=== PATIENT | female | born 1955 | race Asian ===

== ENCOUNTER 2025-05-30 12:47 | Outpatient (REF) | payer MEDICAID, SELFPAY ==
[2025-05-30 18:16] LABS: MANUAL DIFF FLAG NO
[2025-05-30 18:22] LABS: Hematocrit 36.3 % (37.0-47.0); Hemoglobin 12.2 g/dl (12.0-16.0); Imm Gran Abs Auto 0.02 X10*3/uL (0.00-0.03); Imm Gran Pct Auto 0.2 % (0.0-0.4); Lymphocytes Absolute Auto 1.1 X10*3/uL (1.2-4.9); Mean Corpuscular HGB Conc 33.6 g/dl (31.0-35.0); Mean Corpuscular Hemoglobin 28.8 pg (27.0-33.0); Mean Corpuscular Volume 85.6 fL (80.0-98.0); NRBC Abs Auto 0.000 X10*3/uL (0.0-0.012); NRBC Pct Auto 0.0 /100WBC (0.0-0.2); Platelet Count 280 X10*3/uL (160-400); Red Blood Count 4.24 X10*6/uL (4.20-5.50); White Blood Count 9.6 X10*3/uL (4.8-10.8)
[2025-05-30 18:32] LABS: Alanine Aminotransferase 30 U/L (0-31); Aspartate Amino Transferase 33 U/L (5-31); Calcium 10.3 mg/dL (8.4-10.2); Estimated Glomerular Filt Rate 53; Uric Acid 5.0 mg/dL (2.4-5.7)
[2025-05-30 19:40] LABS: Erythrocyte Sedimentation Rate 28 MM/HR (0-20)
== END 2025-05-30 12:48 | disposition home or self-care (01) ==
LOC: HO.HKASLDS 12:47
PROVIDERS: PCP Internal Medicine; Visit Provider Student in an Organized Health Care Education/Training Program
DX: R76.0 Raised antibody titer (principal); M25.541 Pain in joints of right hand; M25.542 Pain in joints of left hand; M25.562 Pain in left knee
CPT/HCPCS: 36415; 82306; 82310; 82565; 84450; 84460; 84550; 85025; 85652; 86140; 86431

== ENCOUNTER 2025-05-30 12:47 | Outpatient (AMB) | payer MEDICAID, SELFPAY ==
[2025-05-30 12:49] VITALS: BP 130/78; PULSE 110; O2SAT 97; BMI 23.1
--- NOTE | 2025-05-30 12:49 | A.OFFVIS_ITS ---
Vital Signs 05/30/25 12:49 Height 5 ft 1 in Weight 122 lb 2.177 oz BMI 23.1 BP 130/78 Blood Pressure Location Rt brachial Position Sitting Pulse 110 H Pulse Source Pulse Oximeter Pulse Oximetry (%) 97 Oxygen Delivery Method Room Air Intake Visit Reasons: knee & hand pain/ New Patient Intake Note: Patient is a new patient, externally referred by Kalia Little MD, from [facility] for knee and hand arthritis. Patient c/o pain in back, also, for about a year. She has been taking Tylenol for pain. Accompanied by: Daughter Allergies Seasonal Allergies Allergy (Unknown, Verified 05/30/25 12:55) Unknown HPI Comments Details: 70-year-old female with a history of breast cancer on letrozole presenting to me as a new patient for evaluation of joint pain. With regards to her breast cancer she was diagnosed in 2023 stage I breast cancer where she underwent surgery, chemotherapy and radiotherapy. She was initially put on anastrozole for 2-3 months where she then developed joint pain in the hands and lower back. After this is was stopped and she was put on exemestane where she then developed joint pain, this was then switched to letrozole which she is currently on. Patient reports his joint pain started 2 years ago, this joint pain is mainly in her left knee, left hip and in her lumbar spine. She states that she feels very stiff in the morning, particularly her left knee and her left hip. She states that she has to wait for 5-10 minutes until she feels like she can move again. She does exercises for her left knee and left hip and back. In terms of her hands, she has bilateral CMC pain aggravated by doing work. For pain control patient will take Tylenol as needed as well as NSAID etodolac as needed. Patient reports many years ago she had lower back pain, that time her MRI showed spondyloarthritis. Patient improved after exercises as conservative management She has had some elevated ESR, highly elevated RF otherwise CBC, creatinine, LFTs were within normal limits ROS: NO FEVER, NO WEIGHT LOSS RECENTLY no skin rashes no photosensitivity no oral ulcers. Recent hair fall due to chemotherapy PHYSICAL EXAM General: Comfortable CVS: RRR Respiratory: clear to auscultation bilaterally. Good respiratory effort Skin: No lesions seen MSK: Patient is able to make a fist bilaterally. No tenderness in the MCPs PIPs bilaterally. No active synovitis noted in the hands. Limited range of motion the shoulders, strength 5/5. Patient has point tenderness in the thoracic spine, as well as point tenderness in the back of her hip. She has limited range of motion in the hips bilaterally. Patient is able to flex and extend the knees bilaterally, very mild swelling noted in the right knee, however it is not warm but is tender to palpation. [facility] Medical History (Updated 05/30/25 @ 13:53 by Radha Goss MD) Asthma Breast cancer Muscle soreness Muscle fatigue Morning stiffness of joints Family History Other CAD (coronary artery disease) Diabetes Hypertension Social History Alcohol intake: never Patient Tobacco Use Status: Never used Tobacco Physical Exam Vital Signs: Last Vital Signs Pulse 110 H 05/30/25 12:49 BP 130/78 05/30/25 12:49 Pulse Ox 97 05/30/25 12:49 Oxygen Delivery Method Room Air 05/30/25 12:49 BMI result Body Mass Index 23.1 Assessment & Plan Assessment & Plan (1) Polyarthralgia: Code(s): M25.50 - Pain in unspecified joint Category: Medical (2) Morning stiffness of joints: Code(s): M25.60 - Stiffness of unspecified joint, not elsewhere classified Category: Medical Plan 70-year-old female with a history of breast cancer on letrozole presenting to me as a new patient for evaluation of joint pain. Her joint pain is limited to the hands, left knee, left hip and in the thoracic spine. I do not see any stigmata of inflammatory arthritis like rheumatoid arthritis or psoriatic arthritis, she does not meet clinical criteria for SLE and other connective tissue disease. Most likely her joint pain is attributed to osteoarthritis and wear and tear DJD. I will obtain bilateral hand x-rays bilateral knee x-rays bilateral hip x- rays as well as lumbar and thoracic spine x-rays. Also obtain blood work including inflammatory markers, RF, CCP, vitamin-D levels, calcium, uric acid. I will refer this patient to PT for strengthening exercises of her knee and lower back. As this patient is on letrozole I would recommend that she have a DEXA scan to determine bone density given that she is on antiestrogen medication. She is counseled to have adequate calcium and vitamin-D. I will check these levels today Follow up in 3 weeks for discussion of results and imaging Orders: Orders XR Knee Iglesia 1or 2V Today M25.50 - Pain in unspecified joint XR hip BI w PEL1V Today M25.60 - Stiffness of unspecified joint, not elsewhere classified XR abdomen 3V Today M25.60 - Stiffness of unspecified joint, not elsewhere classified C Reactive Protein Today R76.0 - Raised antibody titer Erythrocyte Sedimentation Rate Today R76.0 - Raised antibody titer Creatinine Today R76.0 - Raised antibody titer Aspartate Amino Transferase Today R76.0 - Raised antibody titer Rheumatoid Factor Today R76.0 - Raised antibody titer Vitamin D 25-OH (D2 and D3) Today M25.60 - Stiffness of unspecified joint, not elsewhere classified XR thoracic spine 1V Today M25.50 - Pain in unspecified joint, M25.60 - Stiffness of unspecified joint, not elsewhere classified XR lumbar spine 1V Today M25.60 - Stiffness of unspecified joint, not elsewhere classified XR Hand Iglesia 2V Today M25.60 - Stiffness of unspecified joint, not elsewhere classified Complete Blood Count Auto Diff Today R76.0 - Raised antibody titer Alanine Aminotransferase Today R76.0 - Raised antibody titer Uric Acid Today M25.60 - Stiffness of unspecified joint, not elsewhere classified Calcium Today M25.60 - Stiffness of unspecified joint, not elsewhere classified PT Evaluation and Treatment Today M25.60 - Stiffness of unspecified joint, not elsewhere classified Medications: New diclofenac sodium 1% (Voltaren Arthritis Pain) apply to single elbow, wrist or hand; for hand includes palm/fingers/back of hand also can apply to knees as needed upto 4 times a day 2 grams topical QID 100 grams 4RF Coding Level of Care Code New Pt Level 4 (20794) Diagnoses Polyarthralgia M25.50 Morning stiffness of joints M25.60
== END 2025-05-30 14:07 | disposition home or self-care (01) ==
LOC: HO.RHES 12:48
PROVIDERS: Visit Provider Student in an Organized Health Care Education/Training Program
DX: M25.59 Pain in other specified joint (principal); M25.60 Stiffness of unspecified joint, not elsewhere classified
CPT/HCPCS: 99204

== ENCOUNTER 2025-06-07 12:58 | Outpatient (REF) | payer MEDICAID, SELFPAY ==
--- NOTE | ~2025-06-07 | XR_ITS ---
Exam: XR HAND 3 VIEWS BILATERAL, bilateral hand x-rays TECHNIQUE: AP, lateral, and oblique views upper extremity, bilateral hands INDICATION: M25.60 - Stiffness of unspecified joint, not elsewhere classified COMPARISON: None available. FINDINGS: RIGHT HAND: Marginal sites are present at the IP joint of thumb, second, fourth, and fifth PIP joints, second-fifth DIP joints, and the second through fourth MCP joints. Joint spaces are relatively preserved, though there is asymmetric narrowing of the IP joint of the thumb. No fractures are identified. LEFT HAND: Minute marginal osteophytes are present involving the PIP joints of the second and fifth digits and second and fourth MCP joints. There is mild asymmetric narrowing of the IP joint of thumb and a marginal osteophyte on the radial side of the distal phalanx No acute abnormality is evident. XR/XR Hand Bilat min 3v IMPRESSION: Mild changes of osteoarthritis involving the right greater than left hands. Electronically signed by: Vinod Trivedi MD 06/07/2025 02:03 PM [facility]
--- NOTE | ~2025-06-07 | XR_ITS ---
EXAMINATION: X-ray bilateral knees CLINICAL INFORMATION: Pain COMPARISON: None TECHNIQUE: AP bilateral knees one view. Right knee 1 view. Left knee 1 view. FINDINGS: Right knee: No visible acute fracture or dislocation. Marginal patellar spurs in the lateral view. Femorotibial joint space is maintained. Small suprapatellar joint fluid. Superior patellar enthesopathy. Left knee: Mild tricompartment arthritis. No acute fracture or dislocation. Small suprapatellar joint fluid. XR/XR Knee Iglesia 1or 2V IMPRESSION: Right knee: No acute findings. Mild patellofemoral arthritis. Left knee: Mild tricompartment arthritis Electronically signed by: Raghavendra Farah MD 06/08/2025 08:07 AM [facility]
--- NOTE | ~2025-06-07 | XR_ITS ---
EXAMINATION: XR BILATERAL HIPS WITH AP PELVIS CLINICAL INFORMATION: M25.60 - Stiffness of unspecified joint, not elsewhere classified COMPARISON: None available. TECHNIQUE: AP view of the pelvis and single views of each hip were obtained. FINDINGS: No acute fracture or dislocation of bilateral hips. Hip joint spaces are preserved. No suspicious bony lesion. Mild symphysis pubis degeneration. SI joints are symmetric. No acute pelvic fracture seen. No abnormal soft tissue calcification. XR/XR hip BI w PEL1V IMPRESSION: No acute findings Electronically signed by: Raghavendra Farah MD 06/08/2025 08:31 AM [facility]
--- NOTE | ~2025-06-07 | XR_ITS ---
EXAMINATION: XR LUMBOSACRAL SPINE CLINICAL INFORMATION: M25.60 - Stiffness of unspecified joint, not elsewhere classified COMPARISON: None available. TECHNIQUE: AP and lateral views. FINDINGS: Levoconvex rotoscoliosis apex at L2-3. Multilevel endplate sclerosis, small marginal osteophyte formation and decreased intervertebral disc height throughout the axial skeleton pronounced at L5-S1 and T12-L1 level. Multiple small Schmorl nodes in the endplates of the vertebral bodies L2 and L3. No gross malalignment. No lytic or blastic lesions. Facet joint hypertrophy at L4-5 and L5-S1 mostly on the left side. XR/XR lumbar spine 2-3V IMPRESSION: Levoconvex rotoscoliosis and multilevel spondylosis without acute fracture or gross listhesis. Electronically signed by: Malcom Cheek MD 06/07/2025 01:58 PM EST
--- NOTE | ~2025-06-07 | XR_ITS ---
EXAMINATION: XR THORACIC SPINE CLINICAL INFORMATION: M25.60 - Stiffness of unspecified joint, not elsewhere classified COMPARISON: None available. TECHNIQUE: 3 views of the thoracic spine were obtained. FINDINGS: There is a gentle S-shaped scoliosis of the thoracolumbar spine, superior aspect apex at T8, inferior aspect apex at L2. There is a normal thoracic kyphosis. There is no subluxation. There is no fracture, compression deformity, or suspicious bone lesion evident. There are multilevel degenerative disc changes with multilevel sclerotic endplate changes present. These changes appear most significant at T8-9. There are multilevel mild degenerative facet changes. Facets are normally aligned. The imaged mediastinal contents, lungs, and paravertebral soft tissues appear normal. XR/XR thoracic spine 2V IMPRESSION: 1. No acute bony or soft tissue abnormalities of the thoracic spine. 2. Mild S-shaped scoliosis. 3. Mild to moderate multilevel spondylosis. Electronically signed by: Clem Mars MD 06/07/2025 01:57 PM [facility]
--- NOTE | ~2025-06-07 | XR_ITS ---
EXAMINATION: XR ABDOMEN KUB CLINICAL INDICATION: M25.60 - Stiffness of unspecified joint, not elsewhere classified COMPARISON: None available. TECHNIQUE: AP view of the abdomen, supine. FINDINGS: Bowel gas pattern is normal/nonspecific. There is no focally dilated loop. No indirect evidence of free air. There is no organomegaly or large abdominal mass. There are no abnormal soft tissue calcifications present. Lung bases are clear. There are surgical clips in the right breast. Mild to moderate levoconvex scoliosis of the lumbar spine, apex at L2-3 with mild to moderate degenerative changes. Mild degenerative changes in both SI joints. No bone lesions. XR/XR abdomen 1V IMPRESSION: No acute findings of the abdomen. Ancillary findings as detailed. Electronically signed by: Clem Mars MD 06/07/2025 01:54 PM [facility]
== END 2025-06-07 12:59 | disposition home or self-care (01) ==
LOC: HO.XRAY 12:58
PROVIDERS: PCP Internal Medicine; Visit Provider Student in an Organized Health Care Education/Training Program
DX: M25.50 Pain in unspecified joint (principal); M25.60 Stiffness of unspecified joint, not elsewhere classified
CPT/HCPCS: 72070; 72100; 73130; 73521; 73560; 74018

== ENCOUNTER → 2025-06-07 13:03 | Outpatient (BNV) | payer MEDICAID, SELFPAY | PROVIDERS: PCP Internal Medicine; Visit Provider Radiology Diagnostic Radiology | DX: M47.816 Spondylosis without myelopathy or radiculopathy, lumbar region (principal); M41.86 Other forms of scoliosis, lumbar region; M47.814 Spondylosis without myelopathy or radiculopathy, thoracic region; M41.84 Other forms of scoliosis, thoracic region; R52 Pain, unspecified; M19.042 Primary osteoarthritis, left hand; M19.041 Primary osteoarthritis, right hand | CPT/HCPCS: 72070; 72100; 73130; 73521; 73560; 74018 ==

== ENCOUNTER 2025-06-19 12:27 | Outpatient (AMB) | payer MEDICAID, SELFPAY ==
[2025-06-19 12:29] VITALS: BP 118/60; PULSE 96; O2SAT 97; BMI 23.1
--- NOTE | 2025-06-19 12:29 | MHC.OFFVIS ---
Vital Signs 06/19/25 12:29 Height 5 ft 1 in Weight 122 lb 4 oz BMI 23.1 BP 118/60 Blood Pressure Location Lt brachial Position Sitting Pulse 96 Pulse Source Pulse Oximeter Pulse Oximetry (%) 97 Oxygen Delivery Method Room Air Intake Visit Reasons: follow up Intake Note: Patient presents for follow up on labs, x-ray reviews for polyarthralgia. Accompanied by: Jake Family friend Allergies Seasonal Allergies Allergy (Unknown, Verified 06/19/25 12:33) Unknown HPI Comments Details: 70-year-old female with a history of breast cancer on letrozole presenting to me as a follow-up for evaluation of joint pain. On blood work, her ESR was slightly elevated 28, CRP was negative. RF was negative. She had imaging done: Hip x-rays showed symmetric SI joints, no acute inflammation. Mild degenerative arthritis. Hand x-rays showed mild osteoarthritis, no evidence of erosive arthropathy. Lumbar spine x-ray showed scoliosis and spondylosis and knee x-rays showed degenerative arthritis. Initial history: With regards to her breast cancer she was diagnosed in 2023 stage I breast cancer where she underwent surgery, chemotherapy and radiotherapy. She was initially put on anastrozole for 2-3 months where she then developed joint pain in the hands and lower back. After this is was stopped and she was put on exemestane where she then developed joint pain, this was then switched to letrozole which she is currently on. Patient reports his joint pain started 2 years ago, this joint pain is mainly in her left knee, left hip and in her lumbar spine. She states that she feels very stiff in the morning, particularly her left knee and her left hip. She states that she has to wait for 5-10 minutes until she feels like she can move again. She does exercises for her left knee and left hip and back. In terms of her hands, she has bilateral CMC pain aggravated by doing work. For pain control patient will take Tylenol as needed as well as NSAID etodolac as needed. Patient reports many years ago she had lower back pain, that time her MRI showed spondyloarthritis. Patient improved after exercises as conservative management She has had some elevated ESR, slightly elevated RF otherwise CBC, creatinine, LFTs were within normal limits ROS: NO FEVER, NO WEIGHT LOSS RECENTLY no skin rashes no photosensitivity no oral ulcers. Recent hair fall due to chemotherapy PHYSICAL EXAM General: Comfortable CVS: RRR Respiratory: clear to auscultation bilaterally. Good respiratory effort Skin: No lesions seen MSK: Patient is able to make a fist bilaterally. No tenderness in the MCPs PIPs bilaterally. No active synovitis noted in the hands. Limited range of motion the shoulders, strength 5/5. Patient has point tenderness in the thoracic spine, as well as point tenderness in the back of her hip. She has limited range of motion in the hips bilaterally. Patient is able to flex and extend the knees bilaterally, very mild swelling noted in the right knee, however it is not warm but is tender to palpation. [facility] Medical History (Updated 06/19/25 @ 12:41 by Radha Goss MD) Asthma Breast cancer Muscle soreness Muscle fatigue Morning stiffness of joints Family History Other CAD (coronary artery disease) Diabetes Hypertension Social History Alcohol intake: never Patient Tobacco Use Status: Never used Tobacco Physical Exam Vital Signs: Last Vital Signs Pulse 96 06/19/25 12:29 BP 118/60 06/19/25 12:29 Pulse Ox 97 06/19/25 12:29 Oxygen Delivery Method Room Air 06/19/25 12:29 BMI result Body Mass Index 23.1 Assessment & Plan Assessment & Plan (1) Osteoarthritis: Code(s): M19.90 - Unspecified osteoarthritis, unspecified site Category: Medical Qualifiers: Osteoarthritis location: multiple joints Osteoarthritis type: primary Qualified Code(s): M15.0 - Primary generalized (osteo)arthritis (2) Morning stiffness of joints: Code(s): M25.60 - Stiffness of unspecified joint, not elsewhere classified Category: Medical (3) Polyarthralgia: Code(s): M25.50 - Pain in unspecified joint Category: Medical Plan: 70-year-old female with a history of breast cancer on letrozole presenting to me as a follow up for evaluation of joint pain. Her joint pain is limited to the hands, left knee, left hip and in the thoracic spine. I do not see any stigmata of inflammatory arthritis like rheumatoid arthritis or psoriatic arthritis, she does not meet clinical criteria for SLE and other connective tissue disease. Imaging reveals degenerative arthritis/ osteoarthritis in hands, hips, lumbar spine, thoracic spine and knees. Patient has slightly elevated ESR, normal CRP, negative RF. Most likely her joint pain is attributed to osteoarthritis and wear and tear DJD. She reports that she has greatly benefitted from physical therapy in terms of her joint pain. The joint pain in her knees has improved from PT. I discussed with her other options for joint. The knees, including cortisone injections and Synvisc injections. She is not interested in injections as of now. As this patient is on letrozole I would recommend that she have a DEXA scan to determine bone density given that she is on antiestrogen medication. She is counseled to have adequate calcium and vitamin-D. Her vitamin-D calcium levels were normal. Her next DEXA scan is in September 2025 Follow up in 6 months for surveillance Plan 70-year-old female with a history of breast cancer on letrozole presenting to me as a follow up for evaluation of joint pain. Her joint pain is limited to the hands, left knee, left hip and in the thoracic spine. I do not see any stigmata of inflammatory arthritis like rheumatoid arthritis or psoriatic arthritis, she does not meet clinical criteria for SLE and other connective tissue disease. Imaging reveals degenerative arthritis/ osteoarthritis in hands, hips, lumbar spine, thoracic spine and knees. Patient has slightly elevated ESR, normal CRP, negative RF. Most likely her joint pain is attributed to osteoarthritis and wear and tear DJD. She reports that she has greatly benefitted from physical therapy in terms of her joint pain. The joint pain in her knees has improved from PT. I discussed with her other options for joint. The knees, including cortisone injections and Synvisc injections. She is not interested in injections as of now. As this patient is on letrozole I would recommend that she have a DEXA scan to determine bone density given that she is on antiestrogen medication. She is counseled to have adequate calcium and vitamin-D. Her vitamin-D calcium levels were normal. Her next DEXA scan is in September 2025 Follow up in 6 months for surveillance Coding Level of Care Code Est Pt Level 3 (45914) Add On Problem Visit Only Diagnoses Primary osteoarthritis involving multiple joints M15.0 Osteoarthritis location: multiple joints Osteoarthritis type: primary Morning stiffness of joints M25.60 Polyarthralgia M25.50
== END 2025-06-19 13:14 | disposition home or self-care (01) ==
LOC: HO.RHES 12:28
PROVIDERS: PCP Internal Medicine; Visit Provider Student in an Organized Health Care Education/Training Program
DX: M15.0 Primary generalized (osteo)arthritis (principal); M25.60 Stiffness of unspecified joint, not elsewhere classified; M25.50 Pain in unspecified joint
CPT/HCPCS: 99213

== ENCOUNTER → 2025-06-19 12:27 | Outpatient (BNVA) | payer MEDICAID, SELFPAY | PROVIDERS: PCP Internal Medicine; Visit Provider Student in an Organized Health Care Education/Training Program | DX: M15.0 Primary generalized (osteo)arthritis (principal); M25.60 Stiffness of unspecified joint, not elsewhere classified; M25.50 Pain in unspecified joint; Z85.3 Personal history of malignant neoplasm of breast; Z79.811 Long term (current) use of aromatase inhibitors | CPT/HCPCS: 99212 ==